=== PATIENT | female | born 2000 | race Caucasian/White ===

== ENCOUNTER 2018-10-24 06:25 | Inpatient (IN) | payer OTHER ==
[~2018-10-24] VITALS: Ht 180.3 cm; Wt 72.6 kg
[2018-10-24 06:25] VITALS: BP 109/63
--- NOTE | 2018-10-24 06:25 | NUR ---
18/F BIBA FROM HOME, WITH FRIEND, C/O RLQ PAIN SINCE YESTERDAY. PT STATED THAT PT STARTED GENERALIZED ABD PAIN. REPORTS N/V/D. AOX4, SKIN NORMAL WARM DRY, RR EVEN AND UNLABORED. BS ACTIVE X4, ABD SOFT FLAT TENDER TO LOWER QUADRANTS, +REBOUND TENDERNESS. HX EYE SURGERY 10 YEARS AGO OTC DRAMAMINE
--- NOTE | 2018-10-24 06:30 | NUR ---
0625-- PT BIBA BLS TO ER BED 4
--- NOTE | 2018-10-24 07:10 | NUR ---
REPORT RECEIVED FROM MARIE AVILEZ FOR TRANSFER OF CARE.
--- NOTE | 2018-10-24 07:15 | NUR ---
PT AAO X4. FULL CLEAR SPEECH, CALM. PT STATES INTERMITTENT RLQ PAIN OF 8/10 WHEN MOVING, 4/10 PAIN WHEN NOT MOVING. NO SIGNS AND SYMPTOMS OF DISTRESS AT THIS TIME. WILL CONTINUE TO MONITOR.
[2018-10-24 07:31] LABS: BASOPHILS % (AUTO) 0.3 % (0.0-2.0); EOSINOPHILS % (AUTO) 0.2 % (0.0-4.0); HEMATOCRIT 37.1 % (36-48); HEMOGLOBIN 12.6 g/dL (12.0-16.0); LYMPHOCYTES # (AUTO) 0.8 K/uL (2.5-16.5); MEAN CORPUSCULAR HEMOGLOBIN 29 pg (27-31); MEAN CORPUSCULAR HGB CONC 34 g/dL (33-37); MEAN CORPUSCULAR VOLUME 85.1 fL (80-94); MONOCYTES # (AUTO) 1.2 K/uL (0.8-1.0); MONOCYTES % (AUTO) 9.3 % (1.7-9.3); NEUTROPHILS # (AUTO) 11.2 K/uL (1.8-7.7); NEUTROPHILS % (AUTO) 84.2 % (42.2-75.2); PLATELET COUNT (AUTO) 179 K/uL (140-450); RED BLOOD CELL COUNT(AUTO) 4.36 MIL/uL (4.20-5.40); RED CELL DISTRIBUTION WIDTH 13.8 % (11.6-13.7); WHITE BLOOD COUNT (AUTO) 13.3 K/uL (4.5-11.0)
[2018-10-24 07:33] LABS: BILIRUBIN,URINE 1+ (NEGATIVE); BLOOD, URINE TRACE-I (NEGATIVE); COLOR,URINE YELLOW (YELLOW); LEUKOCYTE ESTERASE ,URINE NEGATIVE (NEGATIVE); NITRITE, URINE NEGATIVE (NEGATIVE); UGLUCOSE NEGATIVE (NEGATIVE)
[2018-10-24 07:39] LABS: BARBITURATE, URINE NEG. ng/ml (NEG <=200); BENZODIAZEPINE, URINE NEG. ng/mL (NEG <=200); CANNABINOID, URINE NEG. ng/mL (NEG <=50); COCAINE, URINE NEG. ng/mL (NEG <=300); OPIATE, URINE NEG. ng/mL (NEG <=2000); PHENCYCLIDINE SCREEN,URINE NEG. ng/mL (NEG <=25)
--- NOTE | 2018-10-24 07:45 | NUR ---
DR WALTON AT BEDSIDE FOR PT EVALUATION
[2018-10-24] MEDS ORDERED: NACL 0.9% 1,000 ML IV ONE (07:55)
[2018-10-24] MEDS ORDERED: PIPERACILLIN/TAZOBACTAM 3.375 GM in DEXTROSE 5% 50 ML IV ONE (07:55)
[2018-10-24] MEDS ORDERED: MORPHINE SULFATE 2 MG/ML SYR IVP ONE (07:55)
[2018-10-24] MEDS ORDERED: KETOROLAC 30 MG/ML VIAL IVP ONE (07:55)
[2018-10-24] MEDS ORDERED: ONDANSETRON 4 MG/2 ML VIAL IVP ONE (07:55)
[2018-10-24] MEDS ORDERED: NACL 0.9% 1,000 ML IV SCH (07:55)
[2018-10-24 08:08] LABS: RBC,URINE 0-5 /HPF (0-5); WBC,URINE 0-5 /HPF (0-5)
[2018-10-24 08:10] LABS: APPEARANCE,URINE SLIGHTLY HAZY (CLEAR)
[2018-10-24] MEDS ORDERED: PIPERACILLIN/TAZOBACTAM 3.375 GM VIAL IV ONE (08:17)
[2018-10-24 08:28] LABS: ALBUMIN 4.3 g/dL (3.4-5.0); ANION GAP 16.3 (8-16); CARBON DIOXIDE 23.3 mmol/L (21-32); CREATININE 0.7 mg/dL (0.6-1.3); POTASSIUM 3.6 mmol/L (3.5-5.1); TOTAL BILIRUBIN 0.8 mg/dL (0.0-1.0)
--- NOTE | 2018-10-24 08:34 | NUR ---
PT TAKEN VIA BED TO CT BY PROFESSIONAL ADVISOR
--- NOTE | 2018-10-24 08:44 | NUR ---
PT TAKEN BACK TO ROOM VIA BED BY SKETCHER.
--- NOTE | 2018-10-24 08:45 | NUR ---
FILLING STATION ATTENDANT AT BEDSIDE.
--- NOTE | 2018-10-24 09:24 | NUR ---
RECEIVED CALL FROM [facility] AND SPOKE TO JUAN FRANCISCO. CT OF ABD/PELVIS WITH CONTRAST RECEIVED. NOTIFIED DR WALTON.
--- NOTE | 2018-10-24 09:30 | NUR ---
DR WALTON AT BEDSIDE FOR PT RE EVALUATION
[2018-10-24] MEDS ORDERED: ONDANSETRON 4 MG/2 ML VIAL IM/IVP PRN (09:45)
[2018-10-24] MEDS ORDERED: MORPHINE SULFATE 2 MG/ML SYR IVP PRN (09:45)
[2018-10-24] MEDS ORDERED: ACETAMINOPHEN 325 MG TAB PO PRN (09:45)
[2018-10-24] MEDS ORDERED: DOCUSATE SODIUM 100 MG GELCAP PO PRN (09:45)
--- NOTE | 2018-10-24 09:55 | NUR ---
water and fire technician at bedside.
--- NOTE | 2018-10-24 10:04 | NUR ---
Dr. Amezcua evaluating patient at bedside.
[2018-10-24 10:25] VITALS: BP 95/42
--- NOTE | 2018-10-24 10:25 | NUR ---
Patient will be admitted to care of DR LAWSON. Admited to MED SURG. Will go to [id number]. Belongings list completed. Report to MARIE PERALTA.
--- NOTE | 2018-10-24 10:25 | NUR ---
RECEIVED REPORT FROM EMERGENCY ROOM NURSE FOR CONTINUITY OF CARE. PT IN STABLE CONDITION. RESPIRATIONS EVEN AND UNLABORED, ROOM AIR. IV INTACT AND PATENT. SAFETY MEASURES IN PLACE. CALL LIGHT INSTRUCTIONS GIVEN AND AT BEDSIDE. BED IN LOW POSITION. WILL CONTINUE TO MONITOR.
[2018-10-24 10:37] LABS: PROTHROMBIN TIME 11.3 secs (10.8-13.4)
[2018-10-24] MEDS ORDERED: LACTOBACILLUS RHAMNOSUS GG 1 EACH CAP PO SCH (11:00)
[2018-10-24 11:40] LABS: FREE T4 (FREE THYROXINE) 1.04 ng/dL (0.76-1.46); MAGNESIUM 2.2 mg/dL (1.8-2.4); PHOSPHORUS 2.8 mg/dL (2.5-4.9); THYROID STIMULATING HORMONE 0.84 uIU/mL (0.34-3.74)
[2018-10-24] MEDS: DEXT 5% / NACL 0.45% 1,000 ML IV SCH (11:51)
--- NOTE | 2018-10-24 12:10 | NUR ---
PT LYING IN BED WITH FAMILY AT BEDSIDE. PT IN STABLE CONDITION. CALL LIGHT AT BEDSIDE. BED IN LOW POSITION. WILL CONTINUE TO MONITOR.
[2018-10-24] MEDS: PIPER/TAZO 3.375GM/D5W PREMIX 50 ML IV SCH ×2 (13:31→21:00)
--- NOTE | 2018-10-24 15:32 | NUR ---
PT LYING IN BED SLEEPING AT THIS TIME WITH FAMILY AT BEDSIDE. PT IN STABLE CONDITION. BED IN LOW POSITION. CALL LIGHT AT BEDSIDE.
[2018-10-24 16:00] VITALS: BP 95/44
--- NOTE | 2018-10-24 19:36 | NUR ---
GAVE REPORT TO UTILIZATION MANAGEMENT RN NURSE FOR CONTINUITY OF CARE. PT IN STABLE CONDITION.
--- NOTE | 2018-10-24 19:37 | NUR ---
RECEIVED REPORT FROM DAY SHIFT NURSE KATHRYN-RN AT BEDSIDE. PT FAMILY AT BEDSIDE. PT RESTING IN BED, AOX4, ON ROOM AIR WITH LEFT AC #20G RUNNING IVF @70ML/HR, RIGHT HAND #20G-SL. DISCUSSED PLAN OF CARE AND PT VERBALIZED UNDERSTANDING. NO S/S OF RESPIRATORY DISTRESS OR DISCOMFORT NOTED AT THIS TIME. BED IN LOWEST POSITION, BED BREAKS ON, BOTH SIDE RAILS UP. BEDSIDE TABLE AND CALL LIGHT ARE WITHIN REACH. WILL CONTINUE TO MONITOR.
[2018-10-24 20:00] VITALS: BP 99/48
--- NOTE | 2018-10-24 20:00 | NUR ---
VITAL SIGNS TAKEN AND TOLERATED WELL. NO S/S OF RESPIRATORY DISTRESS OR DISCOMFORT NOTED AT THIS TIME. WILL CONTINUE TO MONITOR.
--- NOTE | 2018-10-24 20:15 | NUR ---
PT LEFT UNIT FOR SURGERY.
[2018-10-24] MEDS ORDERED: MIDAZOLAM 2 MG/2 ML VIAL ONE (20:24)
[2018-10-24] MEDS ORDERED: fentaNYL 0.05 MG/ML VIAL ONE (20:24)
[2018-10-24] MEDS: BUPIVACAINE-MPF/EPI 0.25% 30 ML VIAL INJ ONE ×2 (20:28→22:34)
[2018-10-24] MEDS ORDERED: SUCCINYLCHOLINE CHLORIDE 200 MG/10 ML VIAL IVP ONE (20:29)
[2018-10-24] MEDS ORDERED: DESFLURANE 240 ML BTL INH ONE (20:29)
[2018-10-24] MEDS ORDERED: PROPOFOL 200 MG/20 ML VIAL IV ONE (20:29)
[2018-10-24] MEDS ORDERED: METOCLOPRAMIDE 10 MG/2 ML INJ VIAL ONE (20:29)
[2018-10-24] MEDS ORDERED: ROCURONIUM 50 MG/5 ML VIAL IV ONE (20:29)
[2018-10-24] MEDS ORDERED: KETOROLAC 30 MG/ML VIAL ONE (20:29)
[2018-10-24] MEDS ORDERED: GLYCOPYRROLATE 0.2 MG/ML VIAL ONE (20:29)
[2018-10-24] MEDS ORDERED: LIDOCAINE 2% 100 MG/5 ML SYR IVP ONE (20:29)
[2018-10-24] MEDS ORDERED: ONDANSETRON 4 MG/2 ML VIAL ONE (20:29)
[2018-10-24] MEDS ORDERED: NEOSTIGMINE 1:1000 10 MG/10 ML VIAL ONE (20:29)
[2018-10-24] MEDS ORDERED: ONDANSETRON 4 MG/2 ML VIAL IVP PRN (20:55)
[2018-10-24] MEDS ORDERED: HYDROmorphone 1 MG/ML AMP IVP PRN (20:55)
--- NOTE | 2018-10-24 23:05 | NUR ---
PT RETURNED FROM SURGERY. TEMPERATURE 98.3 DEGREES F. 100/46 HR 60 SPO2 96% PT DENIES PAIN
--- NOTE | 2018-10-25 | NUR ---
VITAL SIGNS TAKEN AND TOLERATED WELL. PT CONTINUES TO DENY PAIN. NO S/S OF RESPIRATORY DISTRESS OR DISCOMFORT NOTED AT THIS TIME. WILL CONTINUE TO MONITOR.
[2018-10-25] MEDS: DEXT 5% / NACL 0.45% 1,000 ML IV SCH (00:42)
--- NOTE | 2018-10-25 00:42 | NUR ---
NEW BAG OF IVF HUNG. PT TOLERATED WELL. PT CONTINUES TO DENY PAIN. NO S/S OF RESPIRATORY DISTRESS OR DISCOMFORT NOTED AT THIS TIME. WILL CONTINUE TO MONITOR.
--- NOTE | 2018-10-25 02:00 | NUR ---
PT RESTING IN BED. NO S/S OF RESPIRATORY DISTRESS OR DISCOMFORT NOTED AT THIS TIME. WILL CONTINUE TO MONITOR.
[2018-10-25] MEDS: PIPER/TAZO 3.375GM/D5W PREMIX 50 ML IV SCH ×2 (04:38→12:31)
--- NOTE | 2018-10-25 07:25 | NUR ---
RECEIVED REPORT FROM DIRECT SERVICE PROFESSIONAL NURSE MILES FOR CONTINUITY OF CARE. PT IN STABLE CONDITION. RESPIRATIONS EVEN AND UNLABORED. ROOM AIR. IV INTACT AND PATENT. SAFETY MEASURES IN PLACE. CALL LIGHT AT BEDSIDE. BED IN LOW POSITION. WILL CONTINUE TO MONITOR.
[2018-10-25 08:00] VITALS: BP 101/48
[2018-10-25 08:09] LABS: ANION GAP 12.6 (8-16); CARBON DIOXIDE 25.3 mmol/L (21-32); CREATININE 0.6 mg/dL (0.6-1.3); POTASSIUM 3.9 mmol/L (3.5-5.1)
[2018-10-25 08:15] LABS: BASOPHILS % (AUTO) 0.4 % (0.0-2.0); EOSINOPHILS % (AUTO) 0.6 % (0.0-4.0); HEMATOCRIT 33.4 % (36-48); HEMOGLOBIN 11.3 g/dL (12.0-16.0); LYMPHOCYTES # (AUTO) 1.2 K/uL (2.5-16.5); MEAN CORPUSCULAR HEMOGLOBIN 29 pg (27-31); MEAN CORPUSCULAR HGB CONC 34 g/dL (33-37); MEAN CORPUSCULAR VOLUME 86.7 fL (80-94); MONOCYTES # (AUTO) 0.8 K/uL (0.8-1.0); MONOCYTES % (AUTO) 11.1 % (1.7-9.3); NEUTROPHILS # (AUTO) 4.8 K/uL (1.8-7.7); NEUTROPHILS % (AUTO) 70.9 % (42.2-75.2); PLATELET COUNT (AUTO) 147 K/uL (140-450); RED BLOOD CELL COUNT(AUTO) 3.85 MIL/uL (4.20-5.40); RED CELL DISTRIBUTION WIDTH 13.9 % (11.6-13.7); WHITE BLOOD COUNT (AUTO) 6.8 K/uL (4.5-11.0)
[2018-10-25 08:20] LABS: MAGNESIUM 2.2 mg/dL (1.8-2.4); PHOSPHORUS 3.3 mg/dL (2.5-4.9)
[2018-10-25 08:23] LABS: T4 (THYROXINE) 7.2 ug/dL (4.5-12.0)
[2018-10-25] MEDS: LACTOBACILLUS RHAMNOSUS GG 1 EACH CAP PO SCH (10:18)
--- NOTE | 2018-10-25 12:08 | NUR ---
PT LYING IN BED SLEEPING AT THIS TIME. RESPIRATIONS EVEN AND UNLABORED. WILL CONTINUE TO MONITOR.
[2018-10-25] MEDS: HYDROcodone/APAP 7.5/325 MG 1 TAB PO PRN ×2 (12:31→18:04)
[2018-10-25 16:00] VITALS: BP 96/46
[2018-10-25] MEDS ORDERED: DOCUSATE 100 MG/10 ML UDC GT SCH (18:00)
--- NOTE | 2018-10-25 19:25 | NUR ---
GAVE REPORT TO BOOM STICK MAN NURSE MILES FOR CONTINUITY OF CARE. PT IN STABLE CONDITION.
--- NOTE | 2018-10-25 19:26 | NUR ---
RECEIVED REPORT FROM DAY SHIFT NURSE KATHRYN-RN AT BEDSIDE. PT RESTING IN BED, AOX4, ON ROOM AIR WITH LEFT AC #20G-SL, RIGHT HAND #20G-SL. DISCUSSED PLAN OF CARE AND PT VERBALIZED UNDERSTANDING. NO S/S OF RESPIRATORY DISTRESS OR DISCOMFORT NOTED AT THIS TIME. X3 ABDOMINAL INCISIONS S/P LAP. APPENDECTOMY 10/24/2018. BED IN LOWEST POSITION, BED BREAKS ON, BOTH SIDE RAILS UP. BEDSIDE TABLE AND CALL LIGHT ARE WITHIN REACH. WILL CONTINUE TO MONITOR.
[2018-10-25 20:00] VITALS: BP 101/44
--- NOTE | 2018-10-25 20:00 | NUR ---
VITAL SIGNS TAKEN AND TOLERATED WELL. NO S/S OF RESPIRATORY DISTRESS OR DISCOMFORT NOTED AT THIS TIME. WILL CONTINUE TO MONITOR.
--- NOTE | 2018-10-25 21:00 | NUR ---
PT REFUSED SCHEDULED MEDICATION HEPARIN SUBQ. EDUCATED PT ON PROPHYLACTIC USES. PT CONTINUES TO REFUSE STATING SHE ALREADY HAD A DOSE EARLIER AND ALSO STATED SHE WILL WALK MORE. DR. NGUYEN ARE- NO ORDERS. NO S/S OF RESPIRATORY DISTRESS OR DISCOMFORT NOTED AT THIS TIME. WILL CONTINUE TO MONITOR.
--- NOTE | 2018-10-25 22:00 | NUR ---
PT RESTING IN BED. NO S/S OF RESPIRATORY DISTRESS OR DISCOMFORT NOTED AT THIS TIME. WILL CONTINUE TO MONITOR.
[2018-10-26] VITALS: BP 104/51
--- NOTE | 2018-10-26 | NUR ---
VITAL SIGNS TAKEN AND TOLERATED WELL. NO S/S OF RESPIRATORY DISTRESS OR DISCOMFORT NOTED AT THIS TIME. WILL CONTINUE TO MONITOR.
--- NOTE | 2018-10-26 02:00 | NUR ---
SLEEPING IN BED AT THIS TIME. NO S/S OF RESPIRATORY DISTRESS OR DISCOMFORT NOTED AT THIS TIME. WILL CONTINUE TO MONITOR.
--- NOTE | 2018-10-26 04:00 | NUR ---
PT CONTINUES TO SLEEP IN BED. NO S/S OF RESPIRATORY DISTRESS OR DISCOMFORT NOTED AT THIS TIME. WILL CONTINUE TO MONITOR.
--- NOTE | 2018-10-26 06:00 | NUR ---
PT RESTING IN BED. NO S/S OF RESPIRATORY DISTRESS OR DISCOMFORT NOTED AT THIS TIME. WILL CONTINUE TO MONITOR.
--- NOTE | 2018-10-26 06:24 | NUR ---
PATIENT HAS BEEN SCREENED AND CATEGORIZED LOW NUTRITION RISK. PATIENT WILL BE SEEN WITHIN 7 DAYS OF ADMISSION. 10/31/18 LONNY FRANCIS MS, RDN
--- NOTE | 2018-10-26 07:19 | NUR ---
ENDORSED PT CARE TO DAY SHIFT NURSE NINFA-RN FOR CONTINUITY OF CARE.
--- NOTE | 2018-10-26 07:20 | NUR ---
RECEIVED BEDSIDE REPORT FROM REAL ESTATE ASSISTANT NURSE. PATIENT IS AWAKE, ALERT AND ORIENTEDX4. NO SIGNS OF DISTRESS ON RA. PATIENT IS AMBULATORY. CONTINENT. SKIN HAS 3 SURGICAL WOUNDS, DRESSINGS ARE CLEAN AND DRY. IV ON L AC 20G SL. CLEAN, DRY AND INTACT. PATIENT ABLE TO MAKE NEEDS KNOWN. BED IN LOW POSITION. CALL LIGHT WITHIN REACH. WILL CONTINUE TO MONITOR THE PATIENT
[2018-10-26 07:54] LABS: EOSINOPHILS # (AUTO) 0.1 K/uL (0-0.4); HEMOGLOBIN 12.3 g/dL (12.0-16.0); MONOCYTES # (AUTO) 0.7 K/uL (0.8-1.0)
[2018-10-26 07:57] LABS: BASOPHILS % (AUTO) 0.5 % (0.0-2.0); EOSINOPHILS % (AUTO) 1.6 % (0.0-4.0); LYMPHOCYTES # (AUTO) 1.7 K/uL (2.5-16.5); LYMPHOCYTES % (AUTO) 19.1 % (20.5-51.1); MEAN CORPUSCULAR HEMOGLOBIN 30 pg (27-31); MEAN CORPUSCULAR HGB CONC 34 g/dL (33-37); MEAN CORPUSCULAR VOLUME 86.3 fL (80-94); MONOCYTES % (AUTO) 8.3 % (1.7-9.3); NEUTROPHILS # (AUTO) 6.1 K/uL (1.8-7.7); NEUTROPHILS % (AUTO) 70.5 % (42.2-75.2); PLATELET COUNT (AUTO) 162 K/uL (140-450); RED BLOOD CELL COUNT(AUTO) 4.17 MIL/uL (4.20-5.40); WHITE BLOOD COUNT (AUTO) 8.7 K/uL (4.5-11.0)
[2018-10-26 07:58] LABS: ANION GAP 13.2 (8-16); CARBON DIOXIDE 27.4 mmol/L (21-32); CREATININE 0.6 mg/dL (0.6-1.3); POTASSIUM 3.6 mmol/L (3.5-5.1)
[2018-10-26 08:00] VITALS: BP 114/53
[2018-10-26] MEDS ORDERED: AMOX-1000 PO (08:03)
[2018-10-26] MEDS ORDERED: DOCU-299 PO (08:03)
[2018-10-26] MEDS ORDERED: HYDR-5122 PO (08:03)
[2018-10-26] MEDS ORDERED: LACT10CA1 PO (08:03)
[2018-10-26 08:11] LABS: MAGNESIUM 2.1 mg/dL (1.8-2.4); PHOSPHORUS 2.9 mg/dL (2.5-4.9)
[2018-10-26] MEDS ORDERED: DOCUSATE 100 MG/10 ML UDC PO SCH (09:17)
[2018-10-26] MEDS: LACTOBACILLUS RHAMNOSUS GG 1 EACH CAP PO SCH (09:22)
--- NOTE | 2018-10-26 09:45 | NUR ---
ADMINISTERED MEDS. EDUCATED ON SIDE EFFECTS. PATIENT WILL CONTINUE TO MONITOR THE PATIENT. TOOK PHOTOS OF SURGICAL WOUNDS AND EDUCATED ON WOUND CARE. PATIENT VERBALIZED UNDERSTANDING. PROVIDED PATIENT WITH WOUND CARE SUPPLIES
--- NOTE | 2018-10-26 10:45 | NUR ---
EDUCATED PATIENT ON DISEASE PROCESS, ABN S/SX, WHEN TO GO TO THE ER, PATIENT SAID SHE IS NOT FOLLOW UP W SURGEON BUT WILL FOLLOW UP W PCP, DR TREADWELL SAID THAT IS OK. EDUCATED AGAIN ON WOUND CARE AND NOT TO LIFT HEAVY ITEMS UNTIL CLEARED BY . PATIENT NOT A CANDIDATE FOR PNA, FLU NOT IN [place]. EDUCATED ON MEDS. GAVE PRESCRIPTIONS. PATIENT VERBALIZED UNDERSTANDING AND SIGNED PAPERWORK. ID BANDS REMOVED. IV REMOVED, TIP INTACT.
[2018-10-27] MEDS ORDERED: DOCUSATE 100 MG/10 ML UDC PO SCH (09:00)
== END 2018-10-26 10:45 | disposition home or self-care (01) | DRG 343 ==
LOC: EDBD 06:25 → MED 06:25 → MMU 09:50
PROVIDERS: ADMIT General Practice; ATTEND General Practice
PROC: 0DTJ4ZZ Resection of Appendix, Percutaneous Endoscopic Approach (ICD-10-PCS; principal; 2018-10-24 13:30)
DX: K35.80 Unspecified acute appendicitis (principal); F17.210 Nicotine dependence, cigarettes, uncomplicated; N83.9 Noninflammatory disorder of ovary, fallopian tube and broad ligament, unspecified
CPT/HCPCS: 36415; 71045; 76830; 76856; 80048; 80053; 80305; 81001; 81025; 82150; 82374; 83036; 83690; 83735; 83880; 84100; 84436; 84439; 84443; 84479; 84484; 84703; 85025; 85610; 85730; 87081; 88304; 93005; 96361; 96365; 96375; 99285; J0330; J1644; J1885; J2001; J2250; J2270; J2405; J2543; J2704; J2710; J2765; J3010; J3490; J7030; Q0092; Q9967